=== PATIENT | female | born 1985 | race Caucasian/White ===

== ENCOUNTER → 2018-01-12 | Outpatient (CLI) | payer OTHER | LOC: M RAD 16:34 | DX: O36.80X0 Pregnancy with inconclusive fetal viability, not applicable or unspecified (principal); Z3A.09 9 weeks gestation of pregnancy | CPT/HCPCS: 76801 ==

== ENCOUNTER → 2018-04-16 | Outpatient (REF) | payer OTHER ==
[2018-04-16 14:25] LABS: HEMATOCRIT 42.4 % (36.0-47.0); HEMOGLOBIN 13.8 g/dl (12.0-15.5); MEAN CORPUSCULAR HEMOGLOBIN 31.8 pg (27.0-33.0); MEAN CORPUSCULAR HGB CONC 32.5 g/dl (32.0-36.5); MEAN CORPUSCULAR VOLUME 97.7 fl (80.0-96.0); PLATELET COUNT, AUTOMATED 234 10^3/uL (150-450); RED BLOOD COUNT 4.34 10^6/uL (4.00-5.40); WHITE BLOOD COUNT 6.9 10^3/uL (4.0-10.0)
[2018-04-16 16:07] LABS: RUBELLA IgG QUALITATIVE IMMUNE (IMMUNE)
[2018-04-16 16:09] LABS: HBsAg Prenatal NEGATIVE (NEGATIVE)
[2018-04-16 16:36] LABS: HEPATITIS C VIRUS ABY INDEX 0.1 INDEX (<0.8)
[2018-04-16 16:37] LABS: HIV 1&2 SCREEN CENTAUR NEGATIVE (NEGATIVE)
[2018-04-20 00:06] LABS: T PALLIDUM ANTIBODIES Negative (Negative)
== END ==
LOC: M LAB REF 12:42
DX: Z34.81 Encounter for supervision of other normal pregnancy, first trimester (principal)

== ENCOUNTER 2020-04-27 14:05 | Emergency (ER) | payer OTHER ==
[~2020-04-27] VITALS: Ht 160 cm; Wt 62.0 kg
[2020-04-27] MEDS ORDERED: prenatal (14:11)
[2020-04-27] MEDS ORDERED: NS 1,000 ML IV ONE (15:00)
[2020-04-27 15:42] LABS: BASO % 0.2 % (0.0-1.0); EOS # 0.1 10^3/uL (0.0-0.5); EOS % 1.2 % (0.0-3.0); HEMATOCRIT 32.1 % (36.0-47.0); HEMOGLOBIN 10.2 g/dl (12.0-15.5); LYMPH # 1.4 10^3/uL (1.5-5.0); LYMPH % 17.5 % (24.0-44.0); MEAN CORPUSCULAR HEMOGLOBIN 31.2 pg (27.0-33.0); MEAN CORPUSCULAR HGB CONC 31.8 g/dl (32.0-36.5); MEAN CORPUSCULAR VOLUME 98.2 fl (80.0-96.0); MONO # 0.5 10^3/uL (0.0-0.8); MONO % 6.7 % (0.0-5.0); NEUTROPHILS # 5.9 10^3/uL (1.5-8.5); PLATELET COUNT, AUTOMATED 209 10^3/uL (150-450); RED BLOOD COUNT 3.27 10^6/uL (4.00-5.40)
[2020-04-27 16:07] LABS: ALBUMIN 3.7 GM/DL (3.2-5.2); ALT/SGPT 22 U/L (12-78); BILIRUBIN,DIRECT 0.2 MG/DL (0.0-0.2); BILIRUBIN,TOTAL 0.6 MG/DL (0.2-1.0); BLOOD UREA NITROGEN 7 MG/DL (7-18); CALCIUM LEVEL 8.6 MG/DL (8.5-10.1); CARBON DIOXIDE LEVEL 28 MEQ/L (21-32); CHLORIDE LEVEL 105 MEQ/L (98-107); CREATININE FOR GFR 0.77 MG/DL (0.55-1.30); GLOMERULAR FILTRATION RATE > 60.0 (>60); GLUCOSE, FASTING 134 MG/DL (70-100); HCG, SERUM QUANTITATIVE 4218 MIU/ML; LIPASE 87 U/L (73-393); POTASSIUM SERUM 3.6 MEQ/L (3.5-5.1); SODIUM LEVEL 138 MEQ/L (136-145); TOTAL PROTEIN 6.8 GM/DL (6.4-8.2)
--- NOTE | 2020-04-27 16:22 | REPVR ---
PROCEDURE INFORMATION: Exam: US Duplex Artery and Vein of the Abdominal and/or Reproductive Organs, Complete Exam date and time: 04/27/2020 4:02 PM Age: 34 years old Clinical indication: complicated by abdominal or pelvic pain; Lower; First trimester; Gestational age or lmp: 5 weeks 2 days; ; Additional info: Lower abd/pelvic pressure TECHNIQUE: Imaging protocol: Real-time duplex ultrasound scan of the arterial and venous flow of the abdominal and/or reproductive organs with B-mode, color Doppler flow and spectral waveform analysis with image documentation. Exam focused on the region of clinical concern. Complete exam. Duplex images required to evaluate vascular conditions. COMPARISON: No relevant prior studies available. FINDINGS: Other vasculature: Normal arterial and venous waveforms within both ovaries on duplex color spectral Doppler analysis. IMPRESSION: 1. No evidence of ovarian torsion. 2. Please refer to transabdominal and transvaginal ultrasound images for additional findings within the uterus and ovaries. PROCEDURE INFORMATION: Exam: US First Trimester, Transabdominal and US , Transvaginal Exam date and time: 04/27/2020 4:02 PM Age: 34 years old Clinical indication: complicated by abdominal or pelvic pain; Lower; First trimester; Gestational age or lmp: 5 weeks 2 days; ; Additional info: Lower abd/pelvic pressure TECHNIQUE: Imaging protocol: Real-time transabdominal obstetrical ultrasound of the maternal pelvis and a first trimester , less than 14 weeks 0 days, with image documentation. Transvaginal imaging was used for better evaluation of the fetus and adnexa. COMPARISON: No relevant prior studies available. FINDINGS: Uterus: Uterus measures 7.4 x 4.1 x 4.7 cm. No intrauterine gestational sac identified. Endometrium measures 0.8 cm in thickness. Right adnexa: Right ovary measures 3.7 x 3 x 3.1 cm. Approximately 2 cm hypoechoic cyst with small internal echoes within the right ovary, suspected hemorrhagic cyst. Normal color flow within the right ovary. Left adnexa: Left ovary measures 6 x 4.5 x 6.6 cm. There is an approximately 4 cm large complex septated cyst in the left ovary. Normal color flow within the left ovary. Intraperitoneal space: 2.5 cm loculated region of anechoic fluid adjacent to the left ovary and complex left ovarian cyst. Small degree of anechoic free fluid in the cul-de-sac. IMPRESSION: Approximately 4 cm large complex septated cyst in the left ovary. Given history of and lack of intrauterine gestation, findings are highly concerning for ectopic . Recommend gynecology consultation. THIS REPORT CONTAINS FINDINGS THAT MAY BE CRITICAL TO PATIENT CARE. The findings were verbally communicated via telephone conference with Dr. Cho at 4:22 PM EDT on 04/27/2020. The findings were acknowledged and understood. Electronically signed by: Matt Garcia On 04/27/2020 16:22:45 PM
[2020-04-27] MEDS ORDERED: IBUP80TA PO (21:35)
[2020-04-27] MEDS ORDERED: PERC5TAB12 PO ×2 (21:36→21:38)
[2020-04-27 22:10] LABS: HEMATOCRIT 29.8 % (36.0-47.0); HEMOGLOBIN 9.5 g/dl (12.0-15.5); MEAN CORPUSCULAR HEMOGLOBIN 31.6 pg (27.0-33.0); MEAN CORPUSCULAR HGB CONC 31.9 g/dl (32.0-36.5); PLATELET COUNT, AUTOMATED 181 10^3/uL (150-450); RED BLOOD COUNT 3.01 10^6/uL (4.00-5.40); WHITE BLOOD COUNT 12.1 10^3/uL (4.0-10.0)
== END 2020-04-27 19:01 | disposition other institution (70) ==
LOC: M ED 14:05
DX: R10.9 Unspecified abdominal pain (principal)

== ENCOUNTER 2020-04-27 18:51 | Day surgery (SDC) | payer OTHER ==
[~2020-04-27 18:51] MED LIST: prenatal
[2020-04-27] MEDS ORDERED: BUPIVACAINE HCL 0.25% 30ML VIAL As Ordered ONE (19:03)
[2020-04-27] MEDS ORDERED: dexameTHASONE 4 MG/ML 1ML VIAL (J1100 PER 1MG) As Ordered ONE (19:13)
[2020-04-27] MEDS ORDERED: MIDAZOLAM INJ 2MG/2ML VIAL (J2250 PER 1MG) As Ordered ONE (19:13)
[2020-04-27] MEDS ORDERED: propofoL 200 MG/20 ML VIAL As Ordered ONE (19:13)
[2020-04-27] MEDS ORDERED: LIDOCAINE 2% 100MG/5ML SDV (FOR ANES.) As Ordered ONE (19:13)
[2020-04-27] MEDS ORDERED: fentaNYL 100 MCG/2 ML INJECTION (J3010) As Ordered ONE ×2 (19:13→19:52)
[2020-04-27] MEDS ORDERED: ROCURONIUM BROMIDE 50 MG/5 ML VIAL As Ordered ONE (19:13)
[2020-04-27] MEDS ORDERED: ONDANSETRON 4MG/2ML VIAL As Ordered ONE (19:14)
[2020-04-27] MEDS ORDERED: SUCCINYLCHOLINE 100 MG/5 ML SYRINGE (J0330) As Ordered ONE (19:52)
[2020-04-27] MEDS ORDERED: ACETAMINOPHEN 1000MG 100ML IV BTL (OFIRMEV) (J0131 PER 10MG) As Ordered ONE (20:19)
[2020-04-27] MEDS ORDERED: KETOROLAC 60MG 2ML VIAL As Ordered ONE (20:19)
[2020-04-27] MEDS ORDERED: METOCLOPRAMIDE INJ 10MG/2ML VIAL (J2765 PER 1) As Ordered ONE (20:24)
[2020-04-27] MEDS ORDERED: METOCLOPRAMIDE INJ 10MG/2ML VIAL (J2765 PER 1) IV PRN (21:15)
[2020-04-27] MEDS ORDERED: fentaNYL 100 MCG/2 ML INJECTION (J3010) IV PRN (21:15)
[2020-04-27] MEDS ORDERED: KETOROLAC 30 MG/ML 1ML VIAL IV PRN (21:15)
[2020-04-27] MEDS ORDERED: LR 1,000 ML IV SCH (21:15)
[2020-04-27] MEDS ORDERED: ONDANSETRON 4MG/2ML VIAL IV PRN (21:15)
--- NOTE | 2020-04-27 21:23 | ROOPDOC ---
[facility] Report Of Operation Report of Operation DATE OF PROCEDURE: 04/27/20 PREPROCEDURE DIAGNOSES: Suspected left ectopic POSTPROCEDURE DIAGNOSES: Ruptured left ovary concerning for a left ovarian ectopic . 2. Hemoperitoneum PROCEDURE: Diagnostic operative laparoscopy with fulguration of left ovary SURGEON: Juanita Mckeon MD CUSTOMER RELATIONS COORDINATOR: None ANESTHESIA: General endotracheal anesthesia. INTRAVENOUS FLUIDS: 1600 mL of lactated Ringer's solution. ESTIMATED BLOOD LOSS: Approximately 5 mL. URINE OUTPUT: 500 mL. PREOPERATIVE ANTIBIOTICS: None. SPECIMENS: Left ovarian tissue. 2. Cervical polyp COMPLICATIONS: None OPERATIVE FINDINGS: 1 cm cervical polyp removed. Approximately 500ml of hemo peritoneum which was suctioned and removed. Left ovary was ruptured with large amount of clot, debris and actively bleeding. Normal-appearing uterus, bilateral fallopian tube, right ovary with approximately 2 cm ovarian cyst. INDICATION FOR OPERATION: Mrs. Mccord is a 4, para 1 who presented to the emergency department with complaints of abdominal pain, bloating and discomfort. She reports pain had worsened yesterday and started to experience shoulder pain. She denies any vaginal bleeding. She is currently 5 weeks and reports trying to get with normal menses. Her history is significant for 3 prior miscarriages. Otherwise uncomplicated history no medical history, surgical history she is a former smoker. She presented to the emergency department and had an H&H which was 10.2 and 32.1. Pelvic ultrasound demonstrated approximate 4 cm large complex cystic area in the left ovary. Intraperitoneal space with 2.5 cm loculated region of anechoic fluid adjacent to the left ovary with free fluid in the abdomen. Patient was thoroughly counseled with the above findings with concerns of ectopic . I discuss management options including methotrexate treatment versus surgery. I discussed my recommendation for diagnostic operative laparoscopy second to my concern for ruptured ectopic and I didn't feel she was a candidate for methotrexate treatment. After consultation patient agreed to proceed with diagnostic operative laparoscopy and she was consented for possible salpingostomy, salpingectomy, salpingo-oophorectomy, as well as all indicated procedures. DESCRIPTION OF PROCEDURE: After informed consent was obtained and written consent was reviewed, the patient was brought to the operating room where she was placed under general endotracheal anesthesia. She was then placed in the lithotomy position. She was prepped and draped in a normal sterile fashion. A time-out in the operating room was then performed identifying the patient, procedure to be performed, as well as drug allergies. Hingham speculum was then placed revealing the cervix. The anterior lip of the cervix was grasped with a single-tooth tenaculum. A Hulka tenaculum was then advanced through the cervical os for a means to manipulate the uterus. Single- tooth tenaculum as well as the speculum was removed. Serrato catheter was then placed and set to gravity. Gloves were changed. Attention was turned to the patient's abdomen where 0.25% Marcaine was infused in umbilical region. This area was incised and a 10 mm trocar and sleeve was advanced through this incision. The laparoscope was then replaced revealing intraabdominal placement. Pneumoperitoneum was then obtained with CO2 gas. The abdomen was then surveyed with the above-noted findings. Two additional port sites were placed. One port site was placed 2 cm above the pubis symphysis in the midline. This area was infused with 0.25% Marcaine. An incision was made in this area and 5 mm trocar and sleeve was advanced through this incision under direct visualization. A second accessory port was placed left side of the patient's abdomen. This area was infused with 0.25% Marcaine. A 5 mm trocar and sleeve was advanced through this incision under direct visualization. The abdomen was inspected with the above-noted findings. A pneumoperitoneum was then suctioned, removing approximately 500ml was noted to be a large clot around the right ovary appeared to be ruptured clot and debris was then removed. Using Harmonic Enrique scalpel device, remnants of tissue from the area of rupture of the ovary was cauterized and excised for hemostasis. Additional fulguration was performed in the interior of the ovary for hemostasis. Amy was then applied over this area. Sites were inspected and noted to be hemostatic. Pneumoperitoneum was then released. Instruments and trochars were removed. The fascia of the umbilical port site was then closed with 0 Vicryl. All 3 port sites skin was closed with #4-0 Monocryl and was dressed with Dermabond. Serrato catheter as well as a Hulka tenaculum was removed. The patient was then taken out of the lithotomy position, was awakened from general anesthesia and taken to recovery in stable condition. Counts were correct. JUANITA MCKEON MD. Apr 27, 2020 21:23
[2020-04-27] MEDS: PERCOCET 5MG/325MG TAB PO PRN ×2 (21:25→22:15)
[2020-04-27] MEDS ORDERED: PERCOCET 5MG/325MG TAB As Ordered ONE (21:26)
[2020-04-27] MEDS ORDERED: IBUP80TA PO (21:35)
[2020-04-27] MEDS ORDERED: PERC5TAB12 PO ×2 (21:36→21:38)
[2020-04-27] MEDS ORDERED: MEPERIDINE INJ 25 MG/ML VIAL (J2175) As Ordered ONE (21:37)
[2020-04-27] MEDS: MEPERIDINE INJ 25 MG/ML VIAL (J2175) IV PRN ×2 (21:38→21:44)
[2020-04-27] MEDS ORDERED: PERCOCET 5MG/325MG TAB PO PRN (21:45)
[2020-04-27] MEDS ORDERED: SUGAMMADEX SODIUM 500 MG/5 ML VIAL (BRIDION) As Ordered ONE (22:32)
[2020-04-27 22:38] VITALS: BP 117/70
[2020-04-28] MEDS ORDERED: KETOROLAC 30 MG/ML 1ML VIAL IV SCH (03:00)
== END 2020-04-27 22:18 | disposition home or self-care (01) ==
LOC: M SDC 18:51
PROVIDERS: ATTEND Obstetrics & Gynecology
DX: N83.202 Unspecified ovarian cyst, left side (principal); N83.201 Unspecified ovarian cyst, right side; N84.1 Polyp of cervix uteri; R10.9 Unspecified abdominal pain
CPT/HCPCS: 36415; 58662; 76801; 76817; 80048; 80076; 81001; 83690; 84702; 85025; 85027; 86850; 86900; 86901; 88305; 93976; 99284; J0131; J0330; J1100; J1885; J2175; J2250; J2405; J2765; J3010; U0002

== ENCOUNTER 2020-08-06 18:09 | Emergency (ER) | payer OTHER ==
[~2020-08-06] VITALS: Ht 160 cm; Wt 66.8 kg
[~2020-08-06 18:09] MED LIST changes: +IBUP80TA PO; +PERC5TAB12 PO
[2020-08-06] MEDS ORDERED: WELLTAB38 PO (18:21)
[2020-08-06 19:14] LABS: BASO % 0.4 % (0.0-1.0); EOS # 0.1 10^3/uL (0.0-0.5); EOS % 1.4 % (0.0-3.0); HEMATOCRIT 40.1 % (36.0-47.0); HEMOGLOBIN 13.1 g/dl (12.0-15.5); LYMPH # 2.7 10^3/uL (1.5-5.0); LYMPH % 27.6 % (24.0-44.0); MEAN CORPUSCULAR HEMOGLOBIN 30.5 pg (27.0-33.0); MEAN CORPUSCULAR HGB CONC 32.7 g/dl (32.0-36.5); MEAN CORPUSCULAR VOLUME 93.3 fl (80.0-96.0); MONO # 0.6 10^3/uL (0.0-0.8); MONO % 6.3 % (0.0-5.0); NEUTROPHILS # 6.2 10^3/uL (1.5-8.5); NEUTROPHILS % 64.1 % (36.0-66.0); PLATELET COUNT, AUTOMATED 258 10^3/uL (150-450); WHITE BLOOD COUNT 9.7 10^3/uL (4.0-10.0)
[2020-08-06 19:34] LABS: BLOOD UREA NITROGEN 7 MG/DL (7-18); CALCIUM LEVEL 8.8 MG/DL (8.5-10.1); CARBON DIOXIDE LEVEL 26 MEQ/L (21-32); CHLORIDE LEVEL 107 MEQ/L (98-107); CREATININE FOR GFR 0.65 MG/DL (0.55-1.30); GLOMERULAR FILTRATION RATE > 60.0 (>60); GLUCOSE, FASTING 97 MG/DL (70-100); POTASSIUM SERUM 3.5 MEQ/L (3.5-5.1); SODIUM LEVEL 139 MEQ/L (136-145)
[2020-08-06 19:41] LABS: HCG, SERUM QUALITATIVE NEGATIVE (NEGATIVE)
[2020-08-06 20:33] LABS: FREE T4 1.08 NG/DL (0.76-1.46)
--- NOTE | 2020-08-06 20:56 | REPVR ---
PROCEDURE INFORMATION: Exam: US Pelvis, Transvaginal Exam date and time: 08/06/2020 8:12 PM Age: 34 years old Clinical indication: Pelvic pain; Additional info: Low abd/pelvic pain TECHNIQUE: Imaging protocol: Real-time transvaginal pelvic ultrasound with image documentation. Transvaginal imaging was used for better evaluation of the endometrium, adnexa, and/or cervix. COMPARISON: No relevant prior studies available. FINDINGS: Uterus/cervix: Uterus measures 7.6 x 4.3 x 5.3 cm. Endometrium measures 6 mm. Normal uterine echotexture. No uterine or endometrial masses. Right adnexa: There is an involuting cyst in the right ovary measuring 2.6 x 3.4 x 2.1 cm. Right ovary is otherwise unremarkable. Normal blood flow. Left adnexa: There is a complex or hemorrhagic cyst in the left ovary measuring 4.7 cm. Left ovary is otherwise unremarkable. Normal blood flow. Urinary bladder: Urinary bladder is unremarkable. Intraperitoneal space: Trace free fluid. IMPRESSION: 1. Complex or hemorrhagic cyst in the left ovary. 2. Involuting cyst in the right ovary. 3. No acute findings. No signs of torsion or hydrosalpinx. Electronically signed by: Christiano Hawk On 08/06/2020 20:56:19 PM
[2020-08-06 21:08] VITALS: BP 130/85
== END 2020-08-06 21:09 | disposition home or self-care (01) ==
LOC: M ED 18:09
DX: R14.0 Abdominal distension (gaseous) (principal); N83.209 Unspecified ovarian cyst, unspecified side; Z87.59 Personal history of other complications of pregnancy, childbirth and the puerperium; F17.200 Nicotine dependence, unspecified, uncomplicated

== ENCOUNTER 2021-04-28 20:47 | Emergency (ER) | payer OTHER ==
[~2021-04-28] VITALS: Ht 160 cm; Wt 76.3 kg
[~2021-04-28 20:47] MED LIST changes: +WELLTAB38 PO
[2021-04-28] MEDS ORDERED: FERR325T18 PO (20:57)
[2021-04-28] MEDS ORDERED: VITA500T9 PO (20:57)
[2021-04-28 21:12] LABS: BASO % 0.2 % (0.0-1.0); EOS # 0.1 10^3/uL (0.0-0.5); EOS % 1.3 % (0.0-3.0); HEMATOCRIT 34.2 % (36.0-47.0); HEMOGLOBIN 11.5 g/dl (12.0-15.5); LYMPH # 1.6 10^3/uL (1.5-5.0); LYMPH % 19.2 % (24.0-44.0); MEAN CORPUSCULAR HEMOGLOBIN 32.3 pg (27.0-33.0); MEAN CORPUSCULAR HGB CONC 33.6 g/dl (32.0-36.5); MEAN CORPUSCULAR VOLUME 96.1 fl (80.0-96.0); MONO # 0.6 10^3/uL (0.0-0.8); MONO % 7.5 % (2.0-8.0); NEUTROPHILS # 5.9 10^3/uL (1.5-8.5); NEUTROPHILS % 71.3 % (36.0-66.0); PLATELET COUNT, AUTOMATED 243 10^3/uL (150-450); RED BLOOD COUNT 3.56 10^6/uL (4.00-5.40); WHITE BLOOD COUNT 8.2 10^3/uL (4.0-10.0)
[2021-04-28 21:36] LABS: INR 0.99; PARTIAL THROMBOPLASTIN TIME 24.9 SECONDS (25.9-37.0); PROTHROMBIN TIME 13.5 SECONDS (12.7-14.5)
[2021-04-28 21:46] LABS: APPEARANCE, URINE HAZY (CLEAR); BACTERIA, URINE AUTO 1+ (NEGATIVE); BILIRUBIN, URINE AUTO NEGATIVE (NEGATIVE); BLOOD, URINE BLOOD NEGATIVE (NEGATIVE); COLOR, URINE YELLOW (YELLOW); GLUCOSE, URINE (UA) AUTO NEGATIVE (NEGATIVE); KETONE, URINE AUTO NEGATIVE (NEGATIVE); LEUKOCYTE ESTERASE, URINE AUTO NEGATIVE (NEGATIVE); MUCUS, URINE SMALL (NEGATIVE); NITRITE, URINE AUTO NEGATIVE (NEGATIVE); PROTEIN, URINE AUTO NEGATIVE (NEGATIVE); RBC, URINE AUTO 2 /HPF (0-3); SPECIFIC GRAVITY URINE AUTO 1.005 (1.002-1.035); SQUAMOUS EPITHELIAL CELL UR AU 12 /HPF (0-6); TRANSITIONAL EPITHELIAL AUTO 1 /HPF; UROBILINOGEN, URINE AUTO 0.2 mg/dL (0.0-2.0); WBC, URINE AUTO 1 /HPF (0-3)
[2021-04-28 21:49] LABS: ERYTHROCYTE SEDIMENTATION RATE 63 mm/hr (0-20)
[2021-04-28 21:57] LABS: ALBUMIN 2.7 GM/DL (3.2-5.2); ALT/SGPT 17 U/L (12-78); BILIRUBIN,DIRECT < 0.1 MG/DL (0.0-0.2); BILIRUBIN,TOTAL 0.4 MG/DL (0.2-1.0); BLOOD UREA NITROGEN 4 MG/DL (7-18); C REACTIVE PROTEIN QUANTITATIV 1.13 MG/DL (0.00-0.30); CALCIUM LEVEL 8.2 MG/DL (8.5-10.1); CARBON DIOXIDE LEVEL 23 MEQ/L (21-32); CHLORIDE LEVEL 107 MEQ/L (98-107); CK-MB VALUE MASS 4.4 NG/ML (<3.6); CPK CREATINE PHOSPHOKINASE 115 U/L (26-192); CREATININE FOR GFR 0.64 MG/DL (0.55-1.30); FREE T3 2.2 PG/ML (2.2-4.0); FREE T4 0.82 NG/DL (0.76-1.46); GLOMERULAR FILTRATION RATE > 60.0 (>60); GLUCOSE, FASTING 148 MG/DL (70-100); MAGNESIUM LEVEL 1.6 MG/DL (1.8-2.4); MB/CK RELATIVE INDEX 3.83 (< OR =4); SODIUM LEVEL 138 MEQ/L (136-145); TOTAL PROTEIN 6.2 GM/DL (6.4-8.2); TROPONIN I 0.87 NG/ML (< 0.10); URIC ACID 3.5 MG/DL (2.6-6.0)
[2021-04-28] MEDS ORDERED: MAG SULF 1GM/100ML (MAG RUN) 1 GM in IV 1 EA IV ONE (22:10)
[2021-04-28] MEDS ORDERED: POTASSIUM CHLORIDE 10 MEQ SR TABLET PO ONE (22:10)
[2021-04-28 22:11] LABS: AMPHETAMINES LEVEL URINE NEGATIVE (NEGATIVE); BARBITURATES URINE NEGATIVE (NEGATIVE); BENZODIAZEPINES URINE NEGATIVE (NEGATIVE); CANNABINOIDS URINE NEGATIVE (NEGATIVE); COCAINE METABOLITE URINE NEGATIVE (NEGATIVE); METHADONE URINE NEGATIVE (NEGATIVE); OPIATES URINE NEGATIVE (NEGATIVE); PHENCYCLIDINE URINE NEGATIVE (NEGATIVE)
[2021-04-28 22:26] LABS: RSV AMPLIFICATION NEGATIVE (NEGATIVE)
--- NOTE | 2021-04-28 22:44 | REPVR ---
PROCEDURE INFORMATION: Exam: XR Chest Exam date and time: 04/28/2021 10:15 PM Age: 35 years old Clinical indication: Other: Tachycardia TECHNIQUE: Imaging protocol: XR of the chest. Views: 1 view. COMPARISON: No relevant prior studies available. FINDINGS: Lungs: Unremarkable. No consolidation. Pleural spaces: Unremarkable. No pleural effusion. No pneumothorax. Heart/Mediastinum: Unremarkable. No cardiomegaly. Bones/joints: Unremarkable. Soft tissues: There are moderately generous overlying soft tissues. IMPRESSION: Negative chest. Electronically signed by: Sam Saab On 04/28/2021 22:43:08 PM
--- NOTE | 2021-04-28 23:06 | REPVR ---
PROCEDURE INFORMATION: Exam: US Duplex Lower Extremity Veins, Bilateral Exam date and time: 04/28/2021 10:59 PM Age: 35 years old Clinical indication: Screening exam; Tachycardia 34 wks; Additional info: , tachycardia TECHNIQUE: Imaging protocol: Real-time duplex ultrasound of the extremities with 2-D lagun[place] scale, color Doppler flow and spectral waveform analysis with image documentation. Complete exam focused on the bilateral lower extremity veins. COMPARISON: 1ST TRIMESTER US 04/27/2020 3:24 PM FINDINGS: Right deep veins: Unremarkable. The common femoral, femoral, proximal profunda femoral and popliteal veins are patent without thrombus. Normal Doppler waveforms. Normal compressibility and/or augmentation response. Right superficial veins: Saphenofemoral junction is patent without thrombus. Left deep veins: Unremarkable. The common femoral, femoral, proximal profunda femoral and popliteal veins are patent without thrombus. Normal Doppler waveforms. Normal compressibility and/or augmentation response. Left superficial veins: Saphenofemoral junction is patent without thrombus. Soft tissues: Unremarkable. IMPRESSION: Negative bilateral lower extremity venous duplex exam without evidence of deep venous thrombosis. Electronically signed by: Sam Saab On 04/28/2021 23:06:04 PM
[2021-04-29 00:14] VITALS: BP 122/75
[2021-04-29] MEDS ORDERED: PRENTAB9 PO (00:44)
--- NOTE | 2021-04-29 16:50 | ECGEPIP ---
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
== END 2021-04-29 00:18 | disposition admitted as inpatient to this hospital (09) ==
LOC: M ED 20:47
DX: O99.413 Diseases of the circulatory system complicating pregnancy, third trimester (principal); O09.513 Supervision of elderly primigravida, third trimester; Z3A.34 34 weeks gestation of pregnancy; Z79.899 Other long term (current) drug therapy
CPT/HCPCS: 71045; 80048; 80076; 80307; 81001; 82550; 82553; 83735; 84439; 84443; 84481; 84484; 84550; 85025; 85610; 85652; 85730; 86140; 87088; 87631; 93005; 93041; 93970; 94760; 96365; 99285; J3475

== ENCOUNTER 2021-04-29 00:23 | Outpatient (CLI) | payer OTHER ==
[2021-04-29] VITALS (7 sets, daily range): BP systolic 102–128; BP diastolic 59–84
[~2021-04-29] VITALS: Ht 160 cm; Wt 74.1 kg
[~2021-04-29 00:23] MED LIST changes: +FERR325T18 PO; +VITA500T9 PO
[2021-04-29] MEDS ORDERED: PRENTAB9 PO (00:44)
[2021-04-29] MEDS ORDERED: HOME MED LIST COMPLETE! XX SCH (00:45)
[2021-04-29 01:14] LABS: ALT/SGPT 17 U/L (12-78); BILIRUBIN,TOTAL 0.4 MG/DL (0.2-1.0); CREATININE FOR GFR 0.65 MG/DL (0.55-1.30); GLOMERULAR FILTRATION RATE > 60.0 (>60); LDH LACTATE DEHYDROGENASE 234 U/L (84-246); URIC ACID 3.6 MG/DL (2.6-6.0)
[2021-04-29 02:34] LABS: CREATININE,RANDOM URINE 44.9 MG/DL; TOTAL PROTEIN,RANDOM URINE 15.2 MG/DL (0.0-12.0)
--- NOTE | 2021-04-29 02:49 | REPVR ---
PROCEDURE INFORMATION: Exam: US First Trimester, Transabdominal Exam date and time: 04/29/2021 2:08 AM Age: 35 years old Clinical indication: Lmp or gestational age (in weeks): 09/04/20; Antepartum complications; Other: Maternal tachycardia; ; Additional info: Estimated weight - eval for pre eclampsia TECHNIQUE: Imaging protocol: Real-time transabdominal obstetrical ultrasound of the maternal pelvis and a first trimester , less than 14 weeks 0 days, with image documentation. COMPARISON: 1ST TRIMESTER US 04/27/2020 3:24 PM FINDINGS: Gestation: Single intrauterine fetus. presentation: Cephalic presentation. Embryonic/ heart rate: heartbeat of 150 bpm. Extra-embryonic membranes/Placenta: Posterior placenta. Amniotic fluid: Amniotic fluid is normal for gestational age. anatomy: The stomach, four-chamber heart, bladder, cord, kidneys, spine and kidneys are normal. BIOMETRY: Gestational age (AUA): The composite gestational age by ultrasound is 35 weeks 5 days. Estimated due date (AUA): The EDC is 05/29/2021. Estimated weight: The estimated weight is 2745 grams and is 91st percentile. Biparietal diameter: The BPD measures 8.7 cm suggesting an age of 35 weeks 0 days. Head circumference: The head circumference measures 32.1 cm suggesting an age of 36 weeks 2 days. Abdominal circumference: The abdominal circumference measures 32.0 cm suggesting an age of 36 weeks 0 days. Femur length: The femur length measures 6.9 cm suggesting an age of 35 weeks 3 days. MATERNAL: Uterus: Unremarkable. Cervix: Closed cervix measuring 3.5 cm. IMPRESSION: 1. Single live intrauterine fetus in cephalic presentation with a composite age of 35 weeks 5 days. The EDC is 05/29/2021. 2. Estimated weight is 2745 g. Electronically signed by: Sam Saab On 04/29/2021 02:48:27 AM
[2021-04-29 03:23] LABS: CREATININE,RANDOM URINE 48.3 MG/DL; TOTAL PROTEIN,RANDOM URINE 16.9 MG/DL (0.0-12.0)
--- NOTE | 2021-04-29 04:45 | IPNPDOC ---
Text Note Date of Service The patient was seen on 04/29/21. NOTE Item Value Date Time Prothrombin Time 13.5 SECONDS 04/28/212105 Prothromb Time International Ratio 0.99 04/28/212105 Activated Partial Thromboplast Time 24.9 SECONDS L 04/28/212105 Sodium Level 138 MEQ/L 04/28/212104 Potassium Level 3.0 MEQ/L L 04/28/212104 Chloride Level 107 MEQ/L 04/28/212104 Carbon Dioxide Level 23 MEQ/L 04/28/212104 Anion Gap 8 MEQ/L 04/28/212104 Blood Urea Nitrogen 4 MG/DL L 04/28/212104 Creatinine 0.64 MG/DL 04/28/212104 Glomerular Filtration Rate > 60.0 04/28/212104 Fasting Glucose 148 MG/DL H 04/28/212104 Uric Acid 3.5 MG/DL 04/28/212104 Calcium Level 8.2 MG/DL L 04/28/212104 Magnesium Level 1.6 MG/DL L 04/28/212104 Total Bilirubin 0.4 MG/DL 04/28/212104 Direct Bilirubin < 0.1 MG/DL 04/28/212104 Aspartate Amino Transf (AST/SGOT) 30 U/L 04/28/212104 Alanine Aminotransferase (ALT/SGPT) 17 U/L 04/28/212104 Alkaline Phosphatase 116 U/L 04/28/212104 Total Creatine Kinase 115 U/L 04/28/212104 Creatine Kinase MB 4.4 NG/ML H 04/28/212104 Creatine Kinase MB Relative Index 3.83 04/28/212104 Troponin I 0.87 NG/ML H 04/28/212104 C-Reactive Protein, Quantitative 1.13 MG/DL H 04/28/212104 Total Protein 6.2 GM/DL L 04/28/212104 Albumin/Globulin Ratio 0.8 L 04/28/212104 Albumin 2.7 GM/DL L 04/28/212104 Thyroid Stimulating Hormone (TSH) 1.840 uIU/ML 04/28/212104 Free Thyroxine 0.82 NG/DL 04/28/212104 Free Triiodothyronine 2.2 PG/ML 04/28/212104 Item Value Date Time White Blood Count 8.2 10^3/uL 04/28/212104 Red Blood Count 3.56 10^6/uL L 04/28/212104 Hemoglobin 11.5 g/dl L 04/28/212104 Hematocrit 34.2 % L 04/28/212104 Mean Corpuscular Volume 96.1 fl H 04/28/212104 Mean Corpuscular Hemoglobin 32.3 pg 04/28/212104 Mean Corpuscular Hemoglobin Concent 33.6 g/dl 04/28/212104 Red Cell Distribution Width 13.3 % 04/28/212104 Platelet Count 243 10^3/uL 04/28/212104 Immature Granulocyte % (Auto) 0.5 % 04/28/212104 Neutrophils (%) (Auto) 71.3 % H 04/28/212104 Lymphocytes (%) (Auto) 19.2 % L 04/28/212104 Monocytes (%) (Auto) 7.5 % 04/28/212104 Eosinophils (%) (Auto) 1.3 % 04/28/212104 Basophils (%) (Auto) 0.2 % 04/28/212104 Neutrophils # (Auto) 5.9 10^3/uL 04/28/212104 Lymphocytes # (Auto) 1.6 10^3/uL 04/28/212104 Monocytes # (Auto) 0.6 10^3/uL 04/28/212104 Eosinophils # (Auto) 0.1 10^3/uL 04/28/212104 Erythrocyte Sedimentation Rate 63 mm/hr H 04/28/212104 Vital Signs Label Value Date Time Respiratory Rate 16 bpm 04/29/2113 Blood Pressure Assessment 122/75 (91) 04/29/2113 Source Automatic Cuff (NIBP) Blood Pressure Assessment 164/81 (108) 04/28/212344 Source Automatic Cuff (NIBP) Respiratory Rate 16 bpm 04/28/212344 Pulse 126 04/28/212344 Pulse 124 04/28/212329 Respiratory Rate 16 bpm 04/28/212329 Blood Pressure Assessment 144/84 (104) 04/28/212329 Source Automatic Cuff (NIBP) Blood Pressure Assessment 137/89 (105) 9/5/21 2315 Source Automatic Cuff (NIBP) Respiratory Rate 16 bpm 04/28/212314 Pulse 127 04/28/212314 Blood Pressure Assessment 132/66 (88) 04/28/21 2300 Source Automatic Cuff (NIBP) Respiratory Rate 16 bpm 04/28/21 2300 Pulse 141 04/28/21 2300 Blood Pressure Assessment 144/76 (98) 04/28/21 224 Source Automatic Cuff (NIBP) Pulse 118 04/28/21 224 Blood Pressure Assessment 112/78 (89) 04/29/21 0339 Source Automatic Cuff (NIBP) Respiratory Rate 16 bpm 04/29/21 0339 Pulse 113 04/29/21 0339 Pulse 110 04/29/21 0308 Respiratory Rate 16 bpm 04/29/21 0308 Blood Pressure Assessment 106/59 (75) 04/29/21 0308 Source Automatic Cuff (NIBP) Blood Pressure Assessment 102/59 (73) 04/29/21 0238 Source Automatic Cuff (NIBP) Respiratory Rate 16 bpm 04/29/21 0238 Pulse 103 04/29/21 0238 Pulse 111 04/29/21 0208 Respiratory Rate 16 bpm 04/29/21 0208 Blood Pressure Assessment 108/72 (84) 04/29/21 0208 Source Automatic Cuff (NIBP) Blood Pressure Assessment 113/69 (84) 04/29/21 0138 Source Automatic Cuff (NIBP) Respiratory Rate 16 bpm 04/29/21 0138 Pulse 111 04/29/21 0138 Pulse 113 04/29/21 0107 Respiratory Rate 16 bpm 04/29/21 0107 Blood Pressure Assessment 128/81 (97) 04/29/21 0107 Source Automatic Cuff (NIBP) Item Value Date Time Urine Random Creatinine 48.3 MG/DL 04/29/21240 Urine Random Total Protein 16.9 MG/DL H 04/29/21 0241 04/29/2021 0400 am PATIENT IS A 35 YO A3 LMP 09/04/2020 EDC BY EARLY US 9 WEEKS 2 DAYS 06/01/21 NOW 33.6 TRANSFERRED FROM ED TO L AND D WITH HISTORY OF TACHYCARDIA AND ELEVATED TROPONINS WITH 1 MID RANGE BLOOD PRESSURE . NO CONTRACTIONS NO BLEEDING OR DISCHARGE.PAST HISTORY OF ANEMIA,DEPRESSION PREVIOU S HISTORY OF OPIOID DEPENDANCE RISK FACTORS LOW POTASSIUM LOW MAGNESIUM ELEVATED TROPONINS AMA ANEMIA TACHYCARDIA EXAMINATION NO ACUTE DISTRESS. ASYMPTOMATIC TACHYCARDIA CATEGORY 1 STRIP NO CONTRACTIONS BASELINE NORMAL MODERATE VARIABILITY. PRE ECLAMPTIC PROFILE NEGATIVE P/C RATIO 0.035. US NORMAL FOR 33.6 WEEKS VERTEX EFW AT 91% FOR WEIGHT. REVIEWED ALL RESULTS WITH PATIENT CONFIRMED NO PRE-E ETIOLOGY TACHYCARDIA UNKNOWN EKG NORMAL.PLAN TO KEEP APPOINTMENT FT DRUM OB, MONITOR AND IOL AT 39 WEEKS PATIENT DISCHARGED UNDELIVERED [facility] NAME: MYRA HANSEN DATE OF : 1985 BUSINESS NUMBER: [id number] AGE: 35 SEX: F REPORT #: [id number] ROOM: LDO TECHNOLOGIST: KAREN DOCTOR: Cesar Wynn MD Ordered for Date&Time: 04/29/21111 cc: [~ rep ct ivnm] Service Date&Time: 04/29/21207 This report is in Signed status. Interpretation performed by [facility]. Thank you for having your radiology procedures performed at [facility] RADIOLOGY REPORT Date&Time printed: [~ rep prt dt last] [~ rep prt tm last] Page 2 of 2 [place] [id number] RADIOLOGY REPORT This report is in Signed status. Interpretation performed by [facility]. Thank you for having your radiology procedures performed at [facility] RADIOLOGY REPORT Date&Time printed: [~ rep prt dt last] [~ rep prt tm last] Page 1 of 2 NAME: MYRA HANSEN DATE OF : 1985 BUSINESS NUMBER: [id number] AGE: 35 SEX: F REPORT #: [id number] ROOM: LDO TECHNOLOGIST: KAREN DOCTOR: Cesar Wynn MD Ordered for Date&Time: 04/29/21111 cc: [~ rep ct ivnm] Service Date&Time: 04/29/21207 EXAMINATION REQUESTED: US OBS SINGEL GEST REASON FOR PATIENT VISIT: SOB, ELEVATED HR REASON FOR EXAMINATION: estimated weight - eval for pre eclampsia PROCEDURE INFORMATION: Exam: US First Trimester, Transabdominal Exam date and time: 04/29/2021 2:08 AM Age: 35 years old Clinical indication: Lmp or gestational age (in weeks): 09/04/20; Antepartum complications; Other: Maternal tachycardia; ; Additional info: Estimated weight - eval for pre eclampsia TECHNIQUE: Imaging protocol: Real-time transabdominal obstetrical ultrasound of the maternal pelvis and a first trimester , less than 14 weeks 0 days, with image documentation. COMPARISON: 1ST TRIMESTER US 04/27/2020 3:24 PM FINDINGS: Gestation: Single intrauterine fetus. presentation: Cephalic presentation. Embryonic/ heart rate: heartbeat of 150 bpm. Extra-embryonic membranes/Placenta: Posterior placenta. Amniotic fluid: Amniotic fluid is normal for gestational age. anatomy: The stomach, four-chamber heart, bladder, cord, kidneys, spine and kidneys are normal. BIOMETRY: Gestational age (AUA): The composite gestational age by ultrasound is 35 weeks 5 days. Estimated due date (AUA): The EDC is 05/29/2021. Estimated weight: The estimated weight is 2745 grams and is 91st percentile. Biparietal diameter: The BPD measures 8.7 cm suggesting an age of 35 weeks 0 days. Head circumference: The head circumference measures 32.1 cm suggesting an age of 36 weeks 2 days. Abdominal circumference: The abdominal circumference measures 32.0 cm suggesting an age of 36 weeks 0 days. Femur length: The femur length measures 6.9 cm suggesting an age of 35 weeks 3 days. MATERNAL: Uterus: Unremarkable. Cervix: Closed cervix measuring 3.5 cm. IMPRESSION: 1. Single live intrauterine fetus in cephalic presentation with a composite age of 35 weeks 5 days. The EDC is 05/29/2021. 2. Estimated weight is 2745 g. Electronically signed by: Nat Saab On 04/29/2021 02:48:27 AM DD: NAT SAAB MD 04/29/218 DT: MAY 04/29/21247 DS: NONI 04/29/21247 [~ rep ct labl] NAME: MYRA HANSEN DATE OF : 1985 BUSINESS NUMBER: [id number] AGE: 35 SEX: F REPORT #: [id number] ROOM: ED TECHNOLOGIST: [facility] DOCTOR: GABRIEL HERNANDEZ MD Ordered for Date&Time: 04/28/212205 cc: [~ rep ct ivnm] Service Date&Time: 04/28/21 3371 EXAMINATION REQUESTED: Duplex, Ext LOWER veins, bilat REASON FOR PATIENT VISIT: ELEVATED HEART RATE REASON FOR EXAMINATION: , tachycardia PROCEDURE INFORMATION: Exam: US Duplex Lower Extremity Veins, Bilateral Exam date and time: 04/28/2021 10:59 PM Age: 35 years old Clinical indication: Screening exam; Tachycardia 34 wks; Additional info: , tachycardia TECHNIQUE: Imaging protocol: Real-time duplex ultrasound of the extremities with 2-D lagun[place] scale, color Doppler flow and spectral waveform analysis with image documentation. Complete exam focused on the bilateral lower extremity veins. COMPARISON: 1ST TRIMESTER US 04/27/2020 3:24 PM FINDINGS: Right deep veins: Unremarkable. The common femoral, femoral, proximal profunda femoral and popliteal veins are patent without thrombus. Normal Doppler waveforms. Normal compressibility and/or augmentation response. Right superficial veins: Saphenofemoral junction is patent without thrombus. Left deep veins: Unremarkable. The common femoral, femoral, proximal profunda femoral and popliteal veins are patent without thrombus. Normal Doppler waveforms. Normal compressibility and/or augmentation response. Left superficial veins: Saphenofemoral junction is patent without thrombus. Soft tissues: Unremarkable. IMPRESSION: Negative bilateral lower extremity venous duplex exam without evidence of deep venous thrombosis. NAME: MYRA HANSEN DATE OF : 1985 BUSINESS NUMBER: [id number] AGE: 35 SEX: F REPORT #: [id number] ROOM: [facility] TECHNOLOGIST: [facility] DOCTOR: GABRIEL HERNANDEZ MD Ordered for Date&Time: 04/28/212205 cc: [~ rep ct ivnm] Service Date&Time: 04/28/212214 EXAMINATION REQUESTED: PORTABLE CHEST X-RAY REASON FOR PATIENT VISIT: ELEVATED HEART RATE REASON FOR EXAMINATION: tachycardia PROCEDURE INFORMATION: Exam: XR Chest Exam date and time: 04/28/2021 10:15 PM Age: 35 years old Clinical indication: Other: Tachycardia TECHNIQUE: Imaging protocol: XR of the chest. Views: 1 view. COMPARISON: No relevant prior studies available. FINDINGS: Lungs: Unremarkable. No consolidation. Pleural spaces: Unremarkable. No pleural effusion. No pneumothorax. Heart/Mediastinum: Unremarkable. No cardiomegaly. Bones/joints: Unremarkable. Soft tissues: There are moderately generous overlying soft tissues. IMPRESSION: Negative chest. Electronically signed by: Nat Saab On 04/28/2021 22:43:08 PM VS,Fishbone, I+O VS, Fishbone, I+O Laboratory Tests 04/28/21 21:05 Vital Signs Date Time Temp Pulse Resp B/P (MAP) Pulse Ox O2 Delivery O2 Flow Rate FiO2 04/29/21 03:39 113 16 112/78 (89) 04/29/21 00:39 98.5 98 Cesar Wynn MD Apr 29, 2021 04:27
== END 2021-04-29 04:14 | disposition home or self-care (01) ==
LOC: M LDO 00:23
PROVIDERS: ATTEND Obstetrics & Gynecology
DX: O26.893 Other specified pregnancy related conditions, third trimester (principal); Z3A.33 33 weeks gestation of pregnancy; R06.02 Shortness of breath; R03.0 Elevated blood-pressure reading, without diagnosis of hypertension; O99.013 Anemia complicating pregnancy, third trimester; D64.9 Anemia, unspecified; O09.523 Supervision of elderly multigravida, third trimester; R00.0 Tachycardia, unspecified
CPT/HCPCS: 59025; 76811; 76819; 76820; 82247; 82565; 82570; 83615; 84156; 84450; 84460; 84550; G0378; G0463

== ENCOUNTER 2021-06-01 16:33 | Inpatient (IN) | payer OTHER ==
[~2021-06-01] VITALS: Ht 160 cm; Wt 75.6 kg
[2021-06-01] VITALS (14 sets, daily range): BP systolic 115–140; BP diastolic 77–95
[~2021-06-01 16:33] MED LIST changes: +PRENTAB9 PO
[2021-06-01] MEDS ORDERED: HOME MED LIST COMPLETE! XX SCH ×2 (17:05)
[2021-06-01] MEDS ORDERED: LIDOCAINE 1% MDV 20ML VIAL INFIL PRN (17:40)
[2021-06-01] MEDS ORDERED: OXYTOCIN DRIP 30 UNITS in IV 1 EA IV PRN ×6 (17:40)
[2021-06-01] MEDS ORDERED: OXYTOCIN INJ 10 UNITS/ML VIAL (J2590) IV PRN (17:40)
[2021-06-01] MEDS ORDERED: TRANEXAMIC ACID INJection 1,000 MG in NS 100 ML IV PRN (17:40)
[2021-06-01] MEDS ORDERED: LACTATED RINGER'S 1000 ML IV STA (17:40)
[2021-06-01] MEDS ORDERED: CARBOPROST TROMETHAMINE 250 MCG/ML AMP IM PRN (17:40)
[2021-06-01] MEDS ORDERED: METHYLERGONOVINE MALEATE 0.2 MG/ML VIAL (J2210) IM PRN (17:40)
[2021-06-01] MEDS ORDERED: BUTORPHANOL 2 MG/ML INJ (J0595) IV ONE (17:40)
[2021-06-01] MEDS ORDERED: PROMETHAZINE INJ 25 MG/ML VIAL (J2550) IV ONE (17:40)
[2021-06-01 18:53] LABS: HEMATOCRIT 38.2 % (36.0-47.0); HEMOGLOBIN 12.9 g/dl (12.0-15.5); MEAN CORPUSCULAR HEMOGLOBIN 32.3 pg (27.0-33.0); MEAN CORPUSCULAR HGB CONC 33.8 g/dl (32.0-36.5); MEAN CORPUSCULAR VOLUME 95.5 fl (80.0-96.0); PLATELET COUNT, AUTOMATED 213 10^3/uL (150-450); WHITE BLOOD COUNT 8.2 10^3/uL (4.0-10.0)
[2021-06-01 19:01] LABS: APPEARANCE, URINE HAZY (CLEAR); BACTERIA, URINE AUTO 1+ (NEGATIVE); BILIRUBIN, URINE AUTO NEGATIVE (NEGATIVE); BLOOD, URINE BLOOD 2+ (NEGATIVE); COLOR, URINE YELLOW (YELLOW); GLUCOSE, URINE (UA) AUTO NEGATIVE (NEGATIVE); KETONE, URINE AUTO 1+ mg/dL (NEGATIVE); LEUKOCYTE ESTERASE, URINE AUTO NEGATIVE (NEGATIVE); NITRITE, URINE AUTO NEGATIVE (NEGATIVE); PROTEIN, URINE AUTO 1+ mg/dL (NEGATIVE); RBC, URINE AUTO 129 /HPF (0-3); SPECIFIC GRAVITY URINE AUTO 1.011 (1.002-1.035); SQUAMOUS EPITHELIAL CELL UR AU 8 /HPF (0-6); UROBILINOGEN, URINE AUTO 0.2 mg/dL (0.0-2.0); WBC, URINE AUTO 2 /HPF (0-3)
[2021-06-01] MEDS ORDERED: FENTANYL 2MCG/ML ROPIVACAINE 0.2% IN 0.9% NACL 100ML IVBAG As Ordered ONE (22:00)
[2021-06-01] MEDS: LR 1,000 ML IV SCH (22:44)
--- NOTE | 2021-06-01 23:09 | HPEPDOC ---
Obstetrical History & Physical General Date of Admission Jun 01, 2021 at 17:33 Primary Care Physician: Cesar Wynn MD History of Present Illness Item Value Date Time White Blood Count 8.2 10^3/uL 06/01/211834 Red Blood Count 4.00 10^6/uL 06/01/211834 Hemoglobin 12.9 g/dl 06/01/211834 Hematocrit 38.2 % 06/01/211834 Mean Corpuscular Volume 95.5 fl 06/01/211834 Mean Corpuscular Hemoglobin 32.3 pg 06/01/211834 Mean Corpuscular Hemoglobin Concent 33.8 g/dl 06/01/211834 Red Cell Distribution Width 13.2 % 06/01/211834 Platelet Count 213 10^3/uL 06/01/21 1835 06/01/21 35 yo A4 LMP 09/04/20 EDC BY US 9 WEEKS 2 DAYS AT 38 3 DAYS . HAD SROM WITH CLEAR LIQUOR AND ACTIVE CONTRACTIONS . Chief Complaint: Contractions, term, LOF, term (SROM CLEAR ) Information Provided By: Patient Age: 35 : 5 Term: 1 Pre-term: 0 Abortions: 4 Livin Care Care: Good Care Number of Visits: 9 Dating Final EDC: Jun 11, 2021 Final EDC for Daily Update: Jun 11, 2021 Final EDC by: LMP (09/04/20) LMP: Sep 04, 2020 1st Trimester Date: Jun 11, 2021 Weeks + Days: 9.2 Estimated Date of Confinement: Jun 11, 2021 EGA at Admission: 38.3 Antepartum Course Diagnos(e)s PROM LABOR Height (inches): 63 Pre- weight (lbs.): 140.0 Admission Weight (lbs.): 166 Change in Weight (lbs.): 26 Past Medical History Past Obstetrical History : Past Obstetrical History: Multigravida Date of Delivery: Feb 15, 2015 Gestation: 38.0 Type of Delivery: Spontaneous Vaginal Del. 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: Spontaneous (X3 COMPLETE), Ectopic (ECTOPIC RUPTUTED RT) Past Medical History Medical History CHRONIC PAIN ANXIETY DEPRESSION Surgical History: [place] teeth (ECTOPIC ) Family History Significant Family History: Cancer (MOTHER COLON CANCER) Family History MOTHER COLON CANCER Social History Marital Status: Family situation: Spouse/partner home Psychosocial History: Depression (ANXIETY) * Smoker: non-smoker Alcohol: Denies Drugs: denies Abuse Violence Screening Have you been hit/kicked/slapp: No Have you been sexually assault: No Imunizations Tdap status: current Allergies Coded Allergies: No Known Allergies (Unverified , 04/27/20) Medications Scheduled Ascorbic Acid (Vitamin C) 500 Mg Tablet, 1 TAB PO DAILY Bupropion HCl (Wellbutrin Xl) 150 Mg Tab.er.24h, 1 TAB PO DAILY Ferrous Sulfate (Ferrous Sulfate) 325 Mg Tablet, 1 TAB PO DAILY No.137/Iron/Folic Acd ( Vitamin Tablet) 1 Each Tablet, 1 TAB PO DAILY Physical Examination Physical Examination GENERAL: Alert and oriented times three. BREAST: . ABDOMEN: Gravid and non-tender to touch. FETUS: Is vertex (VTX) by sterile vaginal examination (SVE), fetus is vertex (VTX) by Aiden. HEART RATE: Regular rate and rhythm. LUNGS: Clear to auscultation (CTA). EXTREMITIES: No edema. No clonus. Deep tendon reflexes (DTRs) + . Other physical findings NORMOCEPHALIC ATRAUMATIC PERRLA THYROID NORMAL CHEST CLEAR TO BASES HEART SOUNDS NORMAL NO MURMURS NO RUBS ABDOMEN SOFT 4 QUADRANT BOWEL SOUNDS CATEGORY 1 STRIP CERVIX 2 CM POSTERIOR -3 STATION NO VAGINAL BLEEDING NO RASHES LESIONS PRURITUS NO ARTHRALGIA MYALGIA NO INCONTINENCE NO URGENCY NO FREQUENCY Vital Signs/I&O Vital Signs Date Time Temp Pulse Resp B/P (MAP) Pulse Ox O2 Delivery O2 Flow Rate FiO2 06/01/21 19:28 18 06/01/21 18:52 115 140/86 (104) 06/01/21 18:01 99.1 Laboratory Data 24H LABS Laboratory Tests 2 06/01/21 17:59: Serology Scanned Report Hepatitis B Testing 06/01/21 18:35: Nucleated Red Blood Cells % (auto) 0.0, Urine Color YELLOW, Urine Appearance HAZY, Urine pH 7.0, Urine Specific [place] 1.011, Urine Protein 1+H, Urine Glucose (Auto)(UA) NEGATIVE, Urine Ketones (Auto) 1+H, Urine Blood 2+H, Urine Nitrite NEGATIVE, Urine Bilirubin NEGATIVE, Urine Urobilinogen 0.2, Urine Leukocyte Esterase (Auto) NEGATIVE, Urine WBC (Auto) 2, Urine RBC (Auto) 129H, Urine Hyaline Casts (Auto) 0, Urine Bacteria (Auto) 1+H, Urine Squamous Epithe lial Cells 8, Urine Sperm (Auto) CBC/BMP Laboratory Tests 06/01/21 18:35 Pertinent Laboratoy Data Blood Type: A+ RBC Antibody Screen: Negative HIV: Negative Hepatitis B: Negative Rapid Plasma Reagin: Nonreactive Rubella: Immune Varicella: Immune Chlamydia/Gonorrhea: Negative Group B Streptococcus: Negative Cystic Fibrosis: Negative Diag/Inter Therapy 3 hour gtt 1 hour 214 2 hour 167 Anatomy Ultrasound Ultrasound Date: May 19, 2021 Placenta Location: Anterior Normal Anatomy: Yes Placenta Previa: No Estimated Weight (grams): 2745 Steroid Therapy Steroid Therapy: No Vaginal Examination Dilation: 2cm Effacement: 50% Station: -3 Cervical Consistency: Medium Cervical Position: Posterior Presentation: Cephalic presentation Position: Vertex (occiput) Assessment Variability: Moderate Accelerations: Present Decelerations: None Tocometer Contractions: Yes Frequency: regular, every 1-5 min. Duration: less than 60 seconds Strength: palpated as moderate Assessment/Plan Assessment 35year-old (G)5 para (P 1 at 38.2 weeks by 9.2 week ultrasound. Presents to Labor and Delivery (L&D) . srom with contractions Plan Admit and orient. 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 Diet: clear fluids Group B Streptococcus (GBS) [negative]. Labs and intravenous (IV) per unit protocol. Counseled on Pitocin and induction of labor (IOL). Lactated Ringers (LR): Bolus 1000 mL, then at 125 mL/hr. Anticipate [normal spontaneous delivery ()]. C-S as appropriate. Labor and Delivery Counseling reviewed consent for delivery which occurs through vagina with posible use of forceps ar vacuum for or maternal indications. emergency cs can occur for or maternal indication will be discussed with patient before proceeding. risks include hemorrhage infection perforation reoperation remote blood transfusion remote hysterectomy possible complications include cephalohematoma bruising or lacerations admission to nicu expressed understanding safe to proceed Cesar Wynn MD Jun 01, 2021 21:53
[2021-06-02] VITALS (16 sets, daily range): BP systolic 102–232; BP diastolic 56–151
[2021-06-02] MEDS ORDERED: diphenhydrAMINE 50MG/ML VIAL (J1200) IV PRN (00:30)
[2021-06-02] MEDS ORDERED: ePHEDrine SULFATE 25 MG/5 ML(5MG/ML) SYRINGE IV PRN (00:30)
[2021-06-02] MEDS ORDERED: LACTATED RINGER'S 1000 ML IV PRN (00:30)
[2021-06-02] MEDS ORDERED: NALOXONE INJ 0.4MG/1ML VIAL (J2310 PER 1MG) IV PRN (00:30)
[2021-06-02] MEDS ORDERED: ONDANSETRON 4MG/2ML VIAL IV PRN (00:30)
[2021-06-02] MEDS ORDERED: EPIDURAL COMMENT XX SCH (00:30)
[2021-06-02] MEDS ORDERED: EPIDURAL/PCA KEYS XX PRN (00:30)
[2021-06-02] MEDS ORDERED: REFRIGERATOR IV KEYS XX PRN (00:30)
[2021-06-02] MEDS: LR 1,000 ML IV SCH ×5 (01:40→15:45)
[2021-06-02 01:43] LABS: CORD GAS HCO3 V 23.1 MEQ/L; CORD GAS O2 SAT V 71.7 %; CORD GAS PCO2 V 44.9 mmHg; CORD GAS PH V 7.33 UNITS; CORD GAS PO2 V 30.1 mmHg; CORD GAS SBC V 21.3 MEQ/L; CORD GAS TCO2 V 24.5 MEQ/L
[2021-06-02 01:44] LABS: CORD GAS ABE A -3.7; CORD GAS HCO3 A 23.4 MEQ/L; CORD GAS O2 SAT A 51.9 %; CORD GAS PCO2 A 49.5 mmHg; CORD GAS PH A 7.293 UNITS; CORD GAS PO2 A 21.1 mmHg; CORD GAS SBC A 20.2 MEQ/L; CORD GAS TCO2 A 24.9 MEQ/L
[2021-06-02] MEDS: FENTANYL/ROPIVACAINE/NACL BAG 100 ML EPIDURAL SCH ×2 (01:51→09:32)
[2021-06-02] MEDS ORDERED: MEASLES,MUMPS,RUBELLA VACCINE INJ (MMR-II) (90707) SC SCH (02:20)
[2021-06-02] MEDS ORDERED: MOM 30ML SUSPENSION UDC PO PRN (02:20)
[2021-06-02] MEDS ORDERED: DOCUSATE SODIUM 100MG CAPSULE PO PRN (02:20)
[2021-06-02] MEDS ORDERED: ANUSOL HC CREAM 30GM TOP PRN (02:20)
[2021-06-02] MEDS ORDERED: DIBUCAINE 1% OINTMENT 30GM TOP PRN (02:20)
[2021-06-02] MEDS ORDERED: RHOGAM 300 MCG (1500 IU) INJ (J2790) IM SCH (02:20)
[2021-06-02] MEDS ORDERED: ACETAMINOPHEN TAB 650MG DOSE (2X325MG) PO PRN (02:20)
[2021-06-02] MEDS ORDERED: METHYLERGONOVINE MALEATE 0.2 MG TAB PO PRN (02:20)
[2021-06-02] MEDS ORDERED: OXYTOCIN DRIP 30 UNITS in IV 1 EA IV SCH (02:20)
[2021-06-02] MEDS ORDERED: OXYTOCIN INJ 10 UNITS/ML VIAL (J2590) IV ONE (02:20)
[2021-06-02] MEDS: IBUPROFEN 600MG TAB PO PRN ×3 (03:18→13:38)
[2021-06-02] MEDS: PRENATAL VITAMINS CHEWABLE TABLET PO SCH (08:14)
[2021-06-02] MEDS: ACETAMINOPHEN 500 MG TAB PO PRN ×2 (09:22→15:41)
[2021-06-02] MEDS ORDERED: FIORICET TAB PO PRN (16:50)
[2021-06-02] MEDS: IBUPROFEN 800 MG TAB PO PRN (21:34)
[2021-06-03] MEDS: ACETAMINOPHEN 500 MG TAB PO PRN ×2 (02:06→11:39)
[2021-06-03 05:55] VITALS: BP 109/65
[2021-06-03] MEDS ORDERED: DOCU100C16 PO (06:22)
[2021-06-03] MEDS ORDERED: IBUP80TA PO (06:22)
--- NOTE | 2021-06-03 07:30 | DSES ---
"DISCHARGE SUMMARY DATE OF ADMISSION: 06/01/2021 DATE OF DISCHARGE: 06/03/2021 BRIEF HISTORY: A 35-year-old 6, now para 2, admitted with contractions and spontaneous rupture of membranes at 38 and 3 weeks of gestation. Delivered a live female infant. Epidural in place, 7 pounds, 8 ounces, 3400 gm, Apgars of 9 and 9 at one and five minutes respectively. Arterial pH 7.29, base excess -3.7, venous pH 7.30, base excess -3.0. Blood pressure on discharge 109/65, respirations 18, pulse 75, temperature 96.9. We discussed phlebitis, cystitis, mastitis, endometritis, and cellulitis, diet, exercise, pain management, perineal, breast, and wound care. PHYSICAL EXAMINATION: The rest of the examination was unremarkable. Normocephalic, atraumatic. Neck full range of motion. Pupils equal and reactive to light. Distal pulses symmetric. No evidence of DVT, PE or superficial phlebitis. Chest is clear bilaterally to bases. No wheezes or rhonchi. No CVA tenderness. Abdomen is soft. Four quadrant bowel sounds are noted. Uterus 2 below. Lochia is moderate. Perineum is intact. No shortness of breath, dyspnea on exertion, no nausea, vomiting, or diarrhea, constipation. No urgency or frequency. ASSESSMENT: In summary we have advanced maternal age delivered spontaneously , live female . PLAN: Plans are to pick out hand medications at [place], six week checkup at [facility]. All questions were answered. Twenty minute discussion. The patient was discharged improved. | cc: [facility]"
[2021-06-03] MEDS: PRENATAL VITAMINS CHEWABLE TABLET PO SCH (07:35)
[2021-06-03] MEDS: IBUPROFEN 800 MG TAB PO PRN ×2 (07:35→16:50)
--- NOTE | 2021-06-03 08:12 | DN ---
DELIVERY NOTE DATE OF DELIVERY: 06/02/2021 TIME OF : GENDER: APGARS: LACERATIONS: ANESTHESIA: ESTIMATED BLOOD LOSS: COUNTS: DESCRIPTION OF DELIVERY: This lady is a 35-year-old 6 now para 1 admitted at 38 and 3 weeks of gestation with spontaneous rupture of membranes and contractions. She had an epidural in place, delivered a live- female infant over an intact perineum; 7 pounds 8 ounces (3400 grams); Apgars of 9 and 9 at one and five minutes respectively. Arterial pH 7.29, base excess -3.7; venous pH 7.30, base excess -3.0. The uterus contracted well down with Pitocin. The anterior, posterior and lateral dutton were clear. She had a small varicosity in the fourchette which was oversewn with 2-0 Vicryl on J339. Sphincter was intact. Uterus contracted well down on Pitocin. The patient and baby tolerated the procedure well. [facility]
[2021-06-03 08:30] LABS: HEMATOCRIT 36.6 % (36.0-47.0); HEMOGLOBIN 11.8 g/dl (12.0-15.5); MEAN CORPUSCULAR HEMOGLOBIN 32.2 pg (27.0-33.0); MEAN CORPUSCULAR HGB CONC 32.2 g/dl (32.0-36.5); PLATELET COUNT, AUTOMATED 183 10^3/uL (150-450); RED BLOOD COUNT 3.66 10^6/uL (4.00-5.40); WHITE BLOOD COUNT 9.9 10^3/uL (4.0-10.0)
== END 2021-06-03 17:55 | disposition home or self-care (01) | DRG 807 ==
LOC: M LDO 16:33 → M LDI 17:33 → M OBS 06-02 03:55
PROVIDERS: ADMIT Obstetrics & Gynecology; ATTEND Obstetrics & Gynecology
PROC: 10E0XZZ Delivery of Products of Conception, External Approach (ICD-10-PCS; principal; 2021-06-02)
PROC: 0HQ9XZZ Repair Perineum Skin, External Approach (ICD-10-PCS; 2021-06-02)
DX: O70.0 First degree perineal laceration during delivery (principal); Z37.0 Single live birth; Z3A.38 38 weeks gestation of pregnancy; O09.523 Supervision of elderly multigravida, third trimester

== ENCOUNTER 2021-06-09 20:14 | Emergency (ER) | payer OTHER ==
[~2021-06-09] VITALS: Ht 160 cm; Wt 71.3 kg
[~2021-06-09 20:14] MED LIST changes: +DOCU100C16 PO
--- OUTSIDE RECORDS SUMMARY | 2021-06-09 20:25 | CCD ---
Author Author [facility] Organization [facility] Address Unknown Phone Unavailable Support Name Relationship Address Phone LIAM HANSEN Next Of Kin [id number] [place] [address] UE Next Of Kin Unknown Unavailable LIAM HANS[place] E[place] [id number] [place] [address] Unavailable Re-disclosure Warning The records that you are about to access may contain information from federally-assisted alcohol or drug abuse programs. If such information is present, then the following federally mandated warning applies: This information has been disclosed to you from records protected by federal confidentiality rules (42 CFR part 2). The federal rules prohibit you from making any further disclosure of this information unless further disclosure is expressly permitted by the written consent of the person to whom it pertains or as otherwise permitted by 42 CFR part 2. A general authorization for the release of medical or other information is NOT sufficient for this purpose. The Federal rules restrict any use of the information to criminally investigate or prosecute any alcohol or drug abuse patient.The records that you are about to access may contain highly sensitive health information, the redisclosure of which is protected by Article 27-F of the [facility] Public Health law. If you continue you may have access to information: Regarding HIV / AIDS; Provided by facilities licensed or operated by the [facility] Office of Mental Health; or Provided by the [facility] Office for People With Developmental Disabilities. If such information is present, then the following [facility] mandated warning applies: This information has been disclosed to you from confidential records which are protected by state law. State law prohibits you from making any further disclosure of this information without the specific written consent of the person to whom it pertains, or as otherwise permitted by law. Any unauthorized further disclosure in violation of state law may result in a fine or assisted sentence or both. A general authorization for the release of medical or other information is NOT sufficient authorization for further disc losure. Medications No Information Insurance Providers Payer name Policy type / Coverage type Policy ID Covered democrat ID Covered democrat's relationship to frederick Policy [place] Plan Information [facility] [id number] [facility] [id number] [facility] O [id number] P [id number] [facility] O/P [id number] [facility] [id number] [facility] [id number] Problems, Conditions, and Diagnoses No Information Surgeries/Procedures No Information Results ID Date Data Source [id number] 04/28/2021 09:20:00 PM EDT [facility] Name Value Range Interpretation Code Description Data Angely rce(s) Supporting Document(s) SARS coronavirus 2 RNA [Presence] in Res piratory specimen by WILFREDO with probe detection NEGATIVE [facility] This lab was ordered by [facility] a nd reported by [facility]. Procedure Social History No Information
[2021-06-09] MEDS ORDERED: NS 1,000 ML IV ONE (21:40)
--- OUTSIDE RECORDS SUMMARY | 2021-06-09 22:01 | CCD ---
Author Author [facility] Organization [facility] Address Unknown Phone Unavailable Support Name Relationship Address Phone LIAM HANSEN Next Of Kin [id number] [place] [address] UE Next Of Kin Unknown Unavailable LIAM HANSEN ECON [id number] [place] [address] Unavailable Re-disclosure Warning The records that you [...] is protected by Article 27-F of the [facility] Public Health law. If you continue you may have access to information: Regarding HIV / AIDS; Provided by facilities licensed or operated by the [facility] Office of Mental Health; or Provided by the [facility] Office for People With Developmental Disabilities. If such information is present, then the following [facility] mandated warning applies: This information has been [...] law may result in a fine or alf sentence or both. A general authorization for the release of medical or other information is NOT sufficient authorization for further disc losure. Medications No Information Insurance Providers Payer name Policy type / Coverage type Policy ID Covered democrat ID Covered democrat's relationship to frederick Policy [place] Plan Information [facility] [id number] [facility] [id number] [facility] O [id number] P [id number] [facility] - O/P [id number] [facility] [id number] [facility] [id number] Problems, Conditions, and Diagnoses No Information Surgeries/Procedures No Information Results ID Date Data Source [id number] 04/28/2021 09:20:00 PM EDT [facility] Name Value Range Interpretation Code Description Data Angely rce(s) Supporting Document(s) SARS coronavirus 2 RNA [Presence] in Res piratory specimen by WILFREDO with probe detection NEGATIVE [facility] This lab was ordered by [facility] a nd reported by [facility]. Procedure Social History No Information
[2021-06-09 22:43] LABS: BASO % 0.2 % (0.0-1.0); EOS # 0.1 10^3/uL (0.0-0.5); EOS % 0.5 % (0.0-3.0); HEMOGLOBIN 12.7 g/dl (12.0-15.5); LYMPH # 1.2 10^3/uL (1.5-5.0); LYMPH % 9.5 % (24.0-44.0); MEAN CORPUSCULAR HEMOGLOBIN 32.5 pg (27.0-33.0); MEAN CORPUSCULAR HGB CONC 33.4 g/dl (32.0-36.5); MEAN CORPUSCULAR VOLUME 97.2 fl (80.0-96.0); MONO # 1.3 10^3/uL (0.0-0.8); MONO % 10.8 % (2.0-8.0); NEUTROPHILS # 9.5 10^3/uL (1.5-8.5); NEUTROPHILS % 78.6 % (36.0-66.0); PLATELET COUNT, AUTOMATED 306 10^3/uL (150-450); RED BLOOD COUNT 3.91 10^6/uL (4.00-5.40); WHITE BLOOD COUNT 12.1 10^3/uL (4.0-10.0)
[2021-06-09] MEDS ORDERED: AMPICILLIN SOD/SULBACTAM SOD 3 GM in D5W MINI-BAG PLUS 100 ML IV ONE (23:00)
[2021-06-09 23:07] LABS: BLOOD UREA NITROGEN 16 MG/DL (7-18); CALCIUM LEVEL 8.5 MG/DL (8.5-10.1); CARBON DIOXIDE LEVEL 22 MEQ/L (21-32); CHLORIDE LEVEL 109 MEQ/L (98-107); CREATININE FOR GFR 0.68 MG/DL (0.55-1.30); GLOMERULAR FILTRATION RATE > 60.0 (>60); GLUCOSE, FASTING 99 MG/DL (70-100); LIPASE 87 U/L (73-393); POTASSIUM SERUM 3.5 MEQ/L (3.5-5.1); SODIUM LEVEL 138 MEQ/L (136-145)
[2021-06-09 23:42] VITALS: BP 142/84
[2021-06-10] MEDS ORDERED: IBUPROFEN 800 MG TAB PO ONE (00:45)
[2021-06-10] MEDS ORDERED: ACETAMINOPHEN TAB 650MG DOSE (2X325MG) PO ONE (00:45)
--- NOTE | 2021-06-10 00:47 | REPVR ---
PROCEDURE INFORMATION: Exam: US Nonobstetric Pelvis; Complete Exam date and time: 06/09/2021 11:01 PM Age: 35 years old Clinical indication: Other: Fever post 6 days, vaginal delivery; Additional info: 6 days vag delivery, fevers, R/O retained poc TECHNIQUE: Imaging protocol: Transabdominal pelvic nonobstetric ultrasound. Complete exam. Real time ultrasound with image documentation. COMPARISON: US PELVIC NON-OB COMPLETE 08/06/2020 7:51 PM FINDINGS: Uterus/cervix: The uterus measures 17.6 x 7.1 x 9.8 cm. The endometrial stripe measures 20 mm. Complex fluid is present in the endometrial canal. No echogenic or vascular material present within the endometrial canal. Right adnexa: Right ovary is sought but not visualized. Left adnexa: Left ovary measures 2.7 x 2.4 x 3.0 cm. Normal vascular flow. Intraperitoneal space: No free fluid in the cul-de-sac. Urinary bladder: Normal. IMPRESSION: uterus, with no retained products of conception demonstrated. Electronically signed by: Uma Conn On 06/10/2021 00:46:34 AM
[2021-06-10] MEDS ORDERED: FERR325T18 PO (01:31)
[2021-06-10] MEDS ORDERED: IBUP-1022 PO (01:31)
[2021-06-10] MEDS ORDERED: VITA500T9 PO (01:31)
[2021-06-10] MEDS ORDERED: BUPR150T12 PO (01:31)
[2021-06-10] MEDS ORDERED: HOME MED LIST COMPLETE! XX SCH (01:35)
[2021-06-10] MEDS ORDERED: AUGM875T28 PO (02:25)
--- NOTE | 2021-06-10 02:55 | IPNPDOC ---
Text Note Date of Service The patient was seen on 06/10/21. NOTE Consulted by ED in regard to Deena Mccord, now 7 days after vaginal delivery of baby #2. Presented for self-reported fevers of 102-101 earlier in the day and chills. Denies cough, shortness of breath, URI symptoms, dysuria, incomplete emptying, vaginal discharge, abdominal pain, flank pain. She has been taking ibuprofen and tylenol and received one dose of unasyn in the ED. 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 Her urine was contaminated so a second sample was taken, results are still pending. Discussed treatment for presumed endometritis with IV antibiotics as inpatient, she declined this and desired to go home. As the two top causes in the differential for fever are endometritis and possible UTI I discussed that augmentin 875mg bid can treat both of those conditions and she agreed with this plan. I did insist on close follow up and she should be seen in clinic in 2-3 days and she agreed to this follow up and strict return precautions especially for flank pain.CVA tenderness, continued fevers. Fabián Mendoza DO VSL[facility], I+O VSLio, I+O Laboratory Tests 06/09/21 22:25 Vital Signs Date Time Temp Pulse Resp B/P (MAP) Pulse Ox O2 Delivery O2 Flow Rate FiO2 06/10/21 00:44 98.7 06/09/21 23:42 88 16 142/84 (103) 98 06/09/21 20:17 Room Air I&O- Last 24 Hours up to 6 AM 06/10/21 06:00 Intake Total 1100 ml Balance 1100 ml FABIÁN MENDOZA DO Jun 10, 2021 02:55
== END 2021-06-10 02:39 | disposition home or self-care (01) ==
LOC: M ED 20:14
DX: R50.9 Fever, unspecified (principal); N80.9 Endometriosis, unspecified; O72.1 Other immediate postpartum hemorrhage; Z87.59 Personal history of other complications of pregnancy, childbirth and the puerperium; O99.345 Other mental disorders complicating the puerperium